=== PATIENT | female | born 1955 | race American Indian/Alaskan Native ===

== ENCOUNTER 2018-10-01 01:09 | Emergency (ER) | payer OTHER ==
[2018-10-01 01:22] VITALS: BP 127/60
--- NOTE | 2018-10-01 02:07 | Cat Scan Report ---
CT head/brain wo con INDICATION / CLINICAL INFORMATION: Fall with head trauma and pain. TECHNIQUE: All CT scans at this location are performed using CT dose reduction for ALARA by means of automated e xposure control. COMPARISON: None available. FINDINGS: There is mild generalized cerebral atrophy. No focal lesion or mass effect is seen. There is no evide nce of intracranial hemorrhage or major vessel occlusion. The calvarium is intact. The visualized par anasal sinuses and mastoid air cells are clear. IMPRESSION: No acute abnormality. Signer Name: Armani Raman MD Signed: 10/01/2018 2:03 AM Workstation Name: [id number]
--- NOTE | 2018-10-01 02:09 | XRay Report ---
LEFT WRIST 2 VIEWS INDICATION / CLINICAL INFORMATION: Fall at work around midnight with left wrist pain. COMPARISON: None available. FINDINGS: BONES / JOINT(S): There are moderate degenerative changes involving the first carpometacarpal joint. 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 There is no evidence of fractu re or dislocation. SOFT TISSUES: No significant abnormality. ADDITIONAL FINDINGS: None. IMPRESSION: No acute abnormality. Signer Name: Armani Raman MD Signed: 10/01/2018 2:05 AM Workstation Name: [id number]
--- NOTE | 2018-10-01 02:10 | XRay Report ---
LEFT SHOULDER 3 VIEWS INDICATION / CLINICAL INFORMATION: Fall at work around midnight with left shoulder pain. COMPARISON: None available. FINDINGS: BONES / JOINT(S): No acute fracture or subluxation. There are mild degenerative changes involving the acromioclavicular joint. SOFT TISSUES: No significant abnormality. ADDITIONAL FINDINGS: The visualized portion of the left lung is clear. IMPRESSION: No acute abnormality. Signer Name: Armani Raman MD Signed: 10/01/2018 2:06 AM Workstation Name: [id number]
--- NOTE | 2018-10-01 02:11 | XRay Report ---
LUMBOSACRAL SPINE 3 VIEWS INDICATION / CLINICAL INFORMATION: Fall at work around midnight with low back pain. COMPARISON: None available. FINDINGS: BONES / JOINT(S): There is mild degenerative disc disease at multiple levels. There are moderate hype rtrophic changes involving the facet joints in the mid to lower lumbar spine bilaterally. The pedicle s are intact and the SI joints are normal. There is no evidence of fracture or subluxation. SOFT TISSUES: No significant abnormality. ADDITIONAL FINDINGS: None. IMPRESSION: Spondylosis without acute abnormality. Signer Name: Armani Raman MD Signed: 10/01/2018 2:07 AM Workstation Name: [id number]
--- NOTE | 2018-10-01 02:18 | Cat Scan Report ---
CT of the cervical spine without contrast and with 2-D reconstructions INDICATION / CLINICAL INFORMATION: Fall with posterior head and neck pain. TECHNIQUE: All CT scans at this location are performed using CT dose reduction for ALARA by means of automated e xposure control. COMPARISON: None available. FINDINGS: There is mild nonspecific reversal of the normal cervical lordosis. There is mild disc space narrowin g at multiple levels. There are [id number] anterior and posterior hypertrophic changes througho ut the mid to lower cervical spine. There is mild to moderate associated central canal stenosis from C4-5 through C7. The prevertebral soft tissues are normal. I see no evidence of fracture or subluxation. I do not iden tify a focal disc herniation or epidural hematoma. The visualized portions of the lungs are clear. IMPRESSION: Spondylosis without acute osseous abnormality. Signer Name: Armani Raman MD Signed: 10/01/2018 2:14 AM Workstation Name: [id number]
--- NOTE | 2018-10-01 03:24 | Emergency Department Report ---
ED Fall HPI - General Chief Complaint: Fall Stated Complaint: FALL Time Seen by Provider: 10/01/18 02:33 Source: patient Mode of arrival: Ambulatory - History of Present Illness Initial Comments: Patient is a 62-year-old female who presents to the emergency room after fall that occurred while at work. She states she was walking to write on the board and slipped and fell. She states that they got a new floor and it feels slippery to her. Patient denies hitting her head or loss of consciousness. She denies any dizziness or chest pain prior to the fall. Patient has associated lower back pain and left shoulder pain and left wrist pain. She denies any numbness, weakness, bowel or bladder incontinence, any other injury. She states her only past medical history is a total knee replacement. Allergy to penicillin. - Related Data Previous Rx's Medication Instructions Recorded Last Taken Type Ibuprofen [Motrin 800 MG tab] 800 mg PO Q8HR PRN #14 tablet 10/01/18 Unknown Rx Tizanidine HCl [Zanaflex 2mg CAP] 2 mg PO QHS PRN #10 capsule 10/01/18 Unknown Rx traMADol [Ultram 50 MG tab] 50 mg PO Q6HR PRN #7 tablet 10/01/18 Unknown Rx Allergies Allergy/AdvReac Type Severity Reaction Status Date / Time Penicillins Allergy Hives Verified 10/01/18 01:30 ED Review of Systems ROS: Stated complaint: FALL Other details as noted in HPI Comment: All other systems reviewed and negative ED Past Medical Hx - Surgical History Past Surgical History?: Yes Additional Surgical History: L knee replacement 2010 - Social History Smoking Status: Never Smoker - Medications Home Medications: Home Medications Medication Instructions Recorded Confirmed Last Taken Type Ibuprofen [Motrin 800 MG tab] 800 mg PO Q8HR PRN #14 tablet 10/01/18 Unknown Rx Tizanidine HCl [Zanaflex 2mg CAP] 2 mg PO QHS PRN #10 capsule 10/01/18 Unknown Rx traMADol [Ultram 50 MG tab] 50 mg PO Q6HR PRN #7 tablet 10/01/18 Unknown Rx ED Physical Exam - General Limitations: No Limitations General appearance: alert, in no apparent distress - Head Head exam: Present: atraumatic, normocephalic - Eye Eye exam: Present: normal appearance, PERRL, EOMI. Absent: periorbital swelling, periorbital tenderness - ENT ENT exam: Present: mucous membranes moist - Neck Neck exam: Present: normal inspection, full ROM. Absent: tenderness - Respiratory Respiratory exam: Present: normal lung sounds bilaterally. Absent: respiratory distress, wheezes, rales, rhonchi, stridor, accessory muscle use, decreased breath sounds, prolonged expiratory - Cardiovascular Cardiovascular Exam: Present: regular rate, normal rhythm, normal heart sounds. Absent: systolic murmur, diastolic murmur, rubs, gallop - Extremities Exam Extremities exam: Present: other (left trapezius TTP, no bony left wrist TTP, no snuffbox tenderness, FROM of the left upper extremity, 2+ radial pulse, sensation intact, no TTP of the left fingers, hand, elbow, no clavicular TTP, clavicles equal, no AC joint tendernss to palpation) - Back Exam Back exam: Present: normal inspection, full ROM. Absent: paraspinal tenderness, vertebral tenderness - Neurological Exam Neurological exam: Present: alert, oriented X3, CN II-XII intact, normal gait. Absent: motor sensory deficit - Psychiatric Psychiatric exam: Present: normal affect, normal mood - Skin Skin exam: Present: warm, dry, intact ED Course Vital Signs 10/01/18 01:21 Temperature 97.7 F Pulse Rate 65 Respiratory 18 Rate Blood Pressure 127/60 [Right] O2 Sat by Pulse 99 Oximetry ED Medical Decision Making - Radiology Data Radiology results: report reviewed CT of the cervical spine without contrast and with 2-D reconstructions INDICATION / CLINICAL INFORMATION: Fall with posterior head and neck pain. TECHNIQUE: All CT scans at this location are performed using CT dose reduction for ALARA by means of automated exposure control. COMPARISON: None available. FINDINGS: There is mild nonspecific reversal of the normal cervical lordosis. There is mild disc space narrowing at multiple levels. There are slmt-xa-yzbcdgjj anterior and posterior hypertrophic changes throughout the mid to lower cervical spine. There is mild to moderate associated central canal stenosis from C4-5 through C7. The prevertebral soft tissues are normal. I see no evidence of fracture or subluxation. I do not identify a focal disc herniation or epidural hematoma. The visualized portions of the lungs are clear. IMPRESSION: Spondylosis without acute osseous abnormality. Signer Name: Armani Raman MD Signed: 10/01/2018 2:14 AM Workstation Name: [id number] Transcribed By: RT Dictated By: Armani Raman MD Electronically Authenticated By: Armani Raman MD Signed Date/Time: 10/01/18 0214 . LEFT WRIST 2 VIEWS INDICATION / CLINICAL INFORMATION: Fall at work around midnight with left wrist pain. COMPARISON: None available. FINDINGS: BONES / JOINT(S): There are moderate degenerative changes involving the first carpometacarpal joint. 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 There is no evidence of fracture or dislocation. SOFT TISSUES: No significant abnormality. ADDITIONAL FINDINGS: None. IMPRESSION: No acute abnormality. Signer Name: Armani Raman MD Signed: 10/01/2018 2:05 AM Workstation Name: [id number] Transcribed By: RT Dictated By: Armani Raman MD Electronically Authenticated By: Armani Raman MD Signed Date/Time: 10/01/18 0205 LUMBOSACRAL SPINE 3 VIEWS INDICATION / CLINICAL INFORMATION: Fall at work around midnight with low back pain. COMPARISON: None available. FINDINGS: BONES / JOINT(S): There is mild degenerative disc disease at multiple levels. There are moderate hypertrophic changes involving the facet joints in the mid to lower lumbar spine bilaterally. The pedicles are intact and the SI joints are normal. There is no evidence of fracture or subluxation. SOFT TISSUES: No significant abnormality. ADDITIONAL FINDINGS: None. IMPRESSION: Spondylosis without acute abnormality. Signer Name: Armani Raman MD Signed: 10/01/2018 2:07 AM Workstation Name: [id number] Transcribed By: RT Dictated By: Armani Raman MD Electronically Authenticated By: Armani Raman MD Signed Date/Time: 10/01/18 0207 LEFT SHOULDER 3 VIEWS INDICATION / CLINICAL INFORMATION: Fall at work around midnight with left shoulder pain. COMPARISON: None available. FINDINGS: BONES / JOINT(S): No acute fracture or subluxation. There are mild degenerative changes involving the acromioclavicular joint. SOFT TISSUES: No significant abnormality. ADDITIONAL FINDINGS: The visualized portion of the left lung is clear. IMPRESSION: No acute abnormality. Signer Name: Armani Raman MD Signed: 10/01/2018 2:06 AM Workstation Name: [id number] Transcribed By: RT Dictated By: Armani Raman MD Electronically Authenticated By: Armani Raman MD Signed Date/Time: 10/01/18205 CT head/brain wo con INDICATION / CLINICAL INFORMATION: Fall with head trauma and pain. TECHNIQUE: All CT scans at this location are performed using CT dose reduction for ALARA by means of automated exposure control. COMPARISON: None available. FINDINGS: There is mild generalized cerebral atrophy. No focal lesion or mass effect is seen. There is no evidence of intracranial hemorrhage or major vessel occlusion. The calvarium is intact. The visualized paranasal sinuses and mastoid air cells are clear. IMPRESSION: No acute abnormality. Signer Name: Armani Raman MD Signed: 10/01/2018 2:03 AM Workstation Name: [id number] Transcribed By: RT Dictated By: Armani Raman MD Electronically Authenticated By: Armani Raman MD Signed Date/Time: 10/01/18202 - Medical Decision Making Patient is a 62-year-old female who presents to the emergency room after fall that occurred while at work. She states she was walking to write on the board and slipped and fell. She states that they got a new floor and it feels slippery to her. Patient denies hitting her head or loss of consciousness. She denies any dizziness or chest pain prior to the fall. Patient has associated lower back pain and left shoulder pain and left wrist pain. She denies any numbness, weakness, bowel or bladder incontinence, any other injury. She states her only past medical history is a total knee replacement. Allergy to penicillin. vitals are normal. on exam: left trapezius TTP, no bony left wrist TTP, no snuffbox tenderness, FROM of the left upper extremity, 2+ radial pulse, sensation intact, no TTP of the left fingers, hand, elbow, no clavicular TTP, clavicles equal, no AC joint tendernss to palpation, no spinal or paraspinal TTP, no step offs, no deformities, no focal neuro deficits. Ct C-spine: Spondylosis without acute osseous abnormality. XR left wrist: No acute abnormality. XR L-spine: Spondylosis without acute abnormality. XR left shoulder: no acute abnormality. CT head: no acute abnormality. pt given anti-inflammatory, muscle relaxer, and pain medication. advised to please take medication as prescribed as needed. Do not drive or operate heavy machinery while taking pain medication or muscle relaxer. Use ice, rest, heat, epsom salt bath. follow up with a primary care doctor in the next 3-5 days. Return to the emergency room for any new or worsening symptoms. - Differential Diagnosis strain, sprain, fx, dislocation, tendon/ligament injury Critical care attestation.: If time is entered above; I have spent that time in minutes in the direct care of this critically ill patient, excluding procedure time. ED Disposition Clinical Impression: Fall Qualifiers: Encounter type: initial encounter Qualified Code(s): W19.XXXA - Unspecified fall, initial encounter Back pain Qualifiers: Back pain location: low back pain Chronicity: acute Back pain laterality: bilateral Sciatica presence: without sciatica Qualified Code(s): M54.5 - Low back pain Wrist pain Qualifiers: Laterality: left Qualified Code(s): M25.532 - Pain in left wrist Left shoulder pain Qualifiers: Chronicity: acute Qualified Code(s): M25.512 - Pain in left shoulder Disposition: DC- TO HOME OR SELFCARE Is pt being admited?: No Does the pt Need Aspirin: No Condition: Stable Instructions: Muscle Strain (ED), Arthralgia (ED) Additional Instructions: please take medication as prescribed as needed. Do not drive or operate heavy [employer] while taking pain medication or muscle relaxer. Use ice, rest, heat, epsom salt bath. follow up with a primary care doctor in the next 3-5 days. Return to the emergency room for any new or worsening symptoms. Prescriptions: Tizanidine HCl [Zanaflex 2mg CAP] 2 mg PO QHS PRN #10 capsule PRN Reason: Muscle Spasm Ibuprofen [Motrin 800 MG tab] 800 mg PO Q8HR PRN #14 tablet PRN Reason: Pain, Moderate (4-6) traMADol [Ultram 50 MG tab] 50 mg PO Q6HR PRN #7 tablet PRN Reason: Pain , Severe (7-10) Referrals: GHASSAN BOWLES MD [Primary Care Provider] - 3-5 Days Forms: Work/School Release Form(ED) Time of Disposition: 03:32 Print Language: LITHUANIAN
== END 2018-10-01 03:40 | disposition home or self-care (01) ==
LOC: ED 01:09
DX: M54.5 Low back pain (principal); M25.532 Pain in left wrist; M25.512 Pain in left shoulder; R51 Headache; Z98.890 Other specified postprocedural states; Z79.899 Other long term (current) drug therapy; W01.0XXA Fall on same level from slipping, tripping and stumbling without subsequent striking against object, initial encounter; Y93.89 Activity, other specified; Y92.69 Other specified industrial and construction area as the place of occurrence of the external cause; Y99.8 Other external cause status
CPT/HCPCS: 70450; 72100; 72125